=== PATIENT | male | born 1990 | race Caucasian/White ===

== ENCOUNTER 2018-07-12 23:13 | Emergency (ER) | payer MEDICAID, SELFPAY ==
[2018-07-12 23:21] VITALS: BP 107/52; PULSE 84; RESP 17; TEMP 36.7; O2SAT 95
--- NOTE | 2018-07-12 23:36 | ED.GENADUL_ITS ---
Discharge Plan Disposition Patient Disposition: HOME Condition: Good Discharge Details Chief Complaint: Abd Prob Clinical Impression: Gastric ulcer Primary Care Provider: None,None ED Provider: Peña Castillo Home Meds and New Rx's Prescriptions: New sucralfate [Carafate] 1 gram tablet 1 gm PO Q8H Qty: 60 RF: 0 pantoprazole [Protonix] 40 mg tablet,delayed release (DR/EC) 40 mg PO BID Qty: 60 RF: 0 ranitidine HCl 300 mg tablet 300 mg PO DAILY Qty: 30 RF: 0 Discharge Instructions Instructions: Peptic Ulcer (ED) Additional Instructions: Please avoid any spicy foods, caffeine, citrus-based foods, or significant soda. Please stick to a diet of bland foods of mashed potatoes, oatmeal, and bananas. Please take the medication as directed. If you notice any worsening of your symptoms, or any new symptoms such as vomiting, diarrhea, fever, chills, shortness of breath, chest pain, numbness, weakness, or fainting , please return immediately to the emergency department for reevaluation. Please follow up with your primary care provider as soon as possible for reassessment and reevaluation. As always, it was a pleasure participating in your medical care today. Medical Decision Making This is a pleasant 27-year-old male who presents today for evaluation of epigastric pain. Is been present for the last month but got notably worse in the last 2 days. He was seen yesterday at [facility] and allegedly had an extensive workup all of which was benign. Fortunately his pain has persisted and he has had no relief. He physical exam demonstrates signs and symptoms concerning for gastritis versus gastric ulcer. I do not want to radiate the patient a second time if necessary. He denies any change in the nature of his symptoms, and this is reassuring. We will treat for gastric ulcer with Carafate, GI cocktail, Protonix. We will get laboratory workup and rehydrate. We will get the results from [facility] and evaluate those and reassess. 12:28 AM The patient's laboratory workup has returned and is relatively benign. No significant leukocytosis, or electrolyte abnormalities. Patient still does not have to urinate. Lipase is normal. After GI cocktail the patient's symptoms completely resolved and he now has 0 pain. I did review the note, labs, and imaging that was performed in [facility] yesterday, urinalysis was negative at that time, laboratory workup was benign, CT scan with contrast of the abdomen and pelvis was read impression: Normal examination of the abdomen and pelvis. This document is electronically signed by Cy Queen MD. With a complete resolution of the patient's symptoms, a negative CT scan yesterday and a binding benign laboratory and urine workup yesterday I feel that he is safe for discharge home as his symptoms are clinically consistent with gastritis/gastric ulcer. On repeat questioning the patient does state that he drinks a copious amounts of soda and Mountain Dew throughout the day, I feel that this is definitely worsening and adding to his symptoms. We will start the patient on antacid medications at home, I did have a lengthy discussion regarding dietary changes which are important to have this resolved, as well as the importance of close follow-up with his PCP that is been recommended to him by [facility]. We discussed red flags which to return the patient understands. I have extensively reviewed the treatment plan and discharge instructions with the patient. I have addressed all patient concerns at this time. The patient was made aware of what symptoms to monitor for that would warrant a return to the emergency department. Discussed the plan with the patient, they demonstrate verbal understanding and agreement with our assessment and plan at this time. HPI General Date/Time Provider Initiated Documentation: 07/12/18 23:26 . HPI Narrative: This is a pleasant 27-year-old male with no past medical history who presents with abdominal pain. Patient has had abdominal pain for the last month, it is notably worsened in the last 2 days. He has associated vomiting which just started yesterday, he has vomited 3-4 times per day. Symptoms not improved with vomiting. He states that he vomits immediately after he eats usually within 1- 3 minutes. States that he has been losing weight, and is lost 10 pounds in the last month is secondary to decrease in eating. He describes the pain is an achy stabbing gnawing in the epigastric region, it radiates to the left and the right knee epigastric region. There are no relieving symptoms. It also radiates towards his back. He denies any other radiation. He denies any chest pain or shortness of breath. He denies any arm neck or shoulder pain. He denies any urinary frequency, dysuria, fevers or chills. He denies any hematemesis. Last bowel movement was earlier today and it was slightly hard. Patient was seen at [facility] just yesterday, where he had a CT scan with contrast, as well as laboratory and urinalysis workup. All of which was negative. He was given Tylenol Motrin but had no improvement of his symptoms. He comes to the ER today for continuation of the pain without resolution. Patient denies any previous abdominal surgeries. He denies any IV or illicit drug use. He denies any pertinent family history. He denies any spicy food intake, or recent trauma to the stomach. Related Data Home Medications Medication Instructions Recorded Confirmed pantoprazole [Protonix] 40 mg PO BID #60 tab 07/13/18 ranitidine HCl 300 mg PO DAILY #30 tab 07/13/18 sucralfate [Carafate] 1 gm PO Q8H #60 tab 07/13/18 Previous Rx's Medication Instructions Recorded pantoprazole [Protonix] 40 mg PO BID #60 tab 07/13/18 ranitidine HCl 300 mg PO DAILY #30 tab 07/13/18 sucralfate [Carafate] 1 gm PO Q8H #60 tab 07/13/18 General Stated Complaint: Abd Prob RODERICK: 4 Review of Systems Review of Systems All systems reviewed & are unremarkable except as noted in HPI and below Exam Narrative Exam Narrative: 1.Const: Well-nourished, Well-developed, appearing stated age 2.Eyes: PERRL, no conjunctival injection, and symmetrical lids. 3.ENT: Atraumatic external nose and ears. Moist MM. Neck: Symmetric, trachea midline, No thyromegaly. 4.CVS: +S1/S2, No murmurs or gallops. Peripheral pulses 2+ and equal in all extremities. Brisk capillary refill in all extremities. 5.RESP: Unlabored respiratory effort. Clear to auscultation bilaterally. No wheezes rales or rhonchi 6.GI: Soft,Nondistended, No hepatosplenomegaly. No guarding or rebound. Mild epigastric, left and right upper quadrant abdominal tenderness. Negative Kelly sign, no pain at McBurney's point. Mild right flank tenderness on percussion. Negative obturator and psoas sign. No chest wall tenderness. Genital exam demonstrates normal male genitalia, bilaterally descended testicles. Nontender testicles. Normal cremasteric reflex bilaterally. No evidence of testicular torsion. 7.MSK: Normocephalic/Atraumatic, Extremities w/o deformity or ttp No cyanosis or clubbing, Normal movement of all extremities 8.Skin: Warm, Dry. No rashes or lesions. 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 Sensation grossly intact, no focal neurologic deficits. 10.Psych: (AAO) x3. Appropriate mood and affect Course Vital Signs Temperature 36.7 C 07/12/18 23:21 Pulse 84 07/12/18 23:21 Respiratory Rate 17 07/12/18 23:21 Blood Pressure 107/52 L 07/12/18 23:21 Pulse Oximetry 95 07/12/18 23:21 Temperature 36.7 C 07/12/18 23:21 Temperature Source Skin 07/12/18 23:21 Pulse 84 07/12/18 23:21 Respiratory Rate 17 07/12/18 23:21 Blood Pressure 107/52 L 07/12/18 23:21 Blood Pressure Position Supine 07/12/18 23:21 Pulse Oximetry 95 07/12/18 23:21 Oxygen Delivery Method Room Air 07/12/18 23:21 Oxygen Flow Rate 0 07/12/18 23:21 Pain Level 10 07/12/18 23:21
[2018-07-12 23:43] LABS: Abs Immature Grans 0.02 k/cumm (0.0-0.09); Absolute Basophil Count 0.01 k/cumm (0.0-0.2); Absolute Eosinophil Count 0.07 k/cumm (0.0-0.7); Absolute Lymphocyte Count 1.06 k/cumm (1.2-3.4); Absolute Monocyte Count 1.15 k/cumm (0.11-0.7); Absolute Neutrophil Count 6.25 k/cumm (1.2-6.7); Basophils % 0.1; Eosinophils % 0.8; HCT 41.6 % (40.0-50.0); HGB 14.6 g/dL (13.5-17.5); Immature Grans % 0.2; Lymphocytes % 12.4; Mean Corp. HGB Concentration 35.1 g/dL (32.0-36.0); Mean Corpuscular Hemoglobin 31.2 pg (27.0-33.0); Mean Corpuscular Volume 88.9 fL (80-95); Mean Platelet Volume 9.9 fL (8.0-11.0); Monocytes % 13.4; Neutrophils % 73.1; Platelet Count 186 x1000/uL (130-400); RBC 4.68 m/cumm (4.50-6.00); RBC Distribution Width 12.7 % (11.8-14.1); White Blood Cell Count 8.56 k/cumm (4.4-10.8)
[2018-07-12] MEDS: Sucralfate 1 GM TAB PO (23:50)
[2018-07-12] MEDS: Pantoprazole 40 MG VIAL IVP (23:51)
[2018-07-12] MEDS: Normal Saline 1,000 ML 1000 ML IV (23:51)
[2018-07-12 23:56] LABS: ALT 21 U/L (12-78); AST 13 U/L (15-37); Albumin 3.6 g/dL (3.4-5.0); Alkaline Phosphatase 92 U/L (46-116); Anion Gap 8.2 mmol/L (3-11); BUN 11 mg/dL (7-18); Bilirubin, Total 0.6 mg/dL (0.2-1.0); CO2 29.8 mmol/L (21.0-32.0); CREATININE 1.04 mg/dL (0.70-1.30); Calcium 8.6 mg/dL (8.5-10.1); Chloride 100 mmol/L (98-107); Glucose 113 mg/dL (70-100); Lipase 88 U/L (73-393); Potassium 3.8 mmol/L (3.5-5.1); Sodium 138 mmol/L (136-145); Total Protein 7.1 g/dL (6.4-8.2)
[2018-07-13] MEDS: Pantoprazole 40 MG TABCR 120 MG PO (00:47)
[2018-07-13] MEDS: Sucralfate 1 GM TAB 3 GM PO (00:48)
[2018-07-13 00:52] VITALS: BP 107/52; PULSE 84; RESP 17; TEMP 36.7; O2SAT 95
== END 2018-07-13 00:53 | disposition home or self-care (01) ==
LOC: ER 07-13 00:57
PROVIDERS: Emergency Provider Student in an Organized Health Care Education/Training Program
DX: K25.3 Acute gastric ulcer without hemorrhage or perforation (principal)
CPT/HCPCS: 36415; 80053; 83690; 96361; 96374; 99284; 81003; 85025